=== PATIENT | female | born 1940 | race Caucasian/White ===

== ENCOUNTER → 2016-12-21 09:00 | Outpatient (CLI) | payer MEDICARE, OTHER ==
[2016-07-11 09:38] VITALS: BMI 23.3
[~2016-12-21 09:00] MED LIST: ATARAX 25 MG TA25 MG PO; AUGMENTIN 875-11 TAB PO; CALCIUM 600 +1 EAC3 PO; CALCIUM 600+D T1 TA1 PO; CLARITIN 10 MG10 MG PO; COUMADIN2.5 MG PO; ELIQUIS5 MG PO; GAVISCON E1 TAB.CHEW PO; HYDROCODON-ACE1 EAC7 PO; LEVAQUIN500 MG PO; LEVOTHROID100 MCG PO; MAG-OX 400 MG400 MG PO; MUCINEX600 MG PO; MUCUS RELIEF400 MG PO; PREDNISONE2.5 MG PO; PROVENTIL HFA6.7 GM INH; SYNTHROID125 MCG PO; TYLENOL 8 HOUR650 MG PO; VITAMIN D31000 UNIT PO; VITAMIN D3400 UNI1 PO; ZOLOFT100 MG PO; ZOLOFT50 MG; [UNRECOGNIZED DRUG - OTHER] PO
== END | disposition home or self-care (01) ==
LOC: D.CT 12-19 12:00 → D.LAB 12-19 12:30 → D.CT 09:00
DX: D49.0 Neoplasm of unspecified behavior of digestive system (principal); D68.9 Coagulation defect, unspecified; I26.99 Other pulmonary embolism without acute cor pulmonale

== ENCOUNTER → 2017-01-08 09:55 | Outpatient (CLI) | payer MEDICARE, OTHER ==
[2016-07-11 09:38] VITALS: BMI 23.3
== END | disposition home or self-care (01) ==
LOC: D.LAB 09:55
DX: C18.9 Malignant neoplasm of colon, unspecified (principal)

== ENCOUNTER → 2017-03-08 09:41 | Outpatient (CLI) | payer MEDICARE, OTHER ==
[2016-07-11 09:38] VITALS: BMI 23.3
== END | disposition home or self-care (01) ==
LOC: D.US 09:30
DX: M79.604 Pain in right leg (principal); R60.0 Localized edema

== ENCOUNTER → 2017-12-20 19:57 | Outpatient (CLI) | payer MEDICARE, OTHER ==
[2016-07-11 09:38] VITALS: BMI 23.3
== END | disposition home or self-care (01) ==
LOC: D.MAMMO 12-11 15:30
DX: Z12.31 Encounter for screening mammogram for malignant neoplasm of breast (principal)

== ENCOUNTER 2019-01-15 06:45 | Day surgery (SDC) | payer MEDICARE, OTHER ==
[2019-01-14 14:26] LABS: HEMATOCRIT 33.1 % (36.0-48.0); HEMOGLOBIN 10.8 g/dL (12-16); MCHC 32.6 g/dL (31.0-37.0); MCV 88.7 fL (80.0-100.0); MEAN PLATELET VOLUME 9.3 fL (7.4-10.4); RBC 3.73 10x6/uL (4.00-5.40); RDW 15.1 % (11.5-14.5); WBC 2.7 10x3/uL (4.8-10.8)
[2019-01-14 15:34] LABS: PLATELET COUNT 166 10x3/uL (130-400)
[2019-01-14 16:01] LABS: APTT 27.7 SECONDS (22.8-39.4); INR 1.39 (0.85-1.17); PROTIME 16.5 SECONDS (11.6-15.0)
[2019-01-14 18:33] LABS: EOSINOPHILS 3 % (0-7); LYMPHOCYTES 48 % (15-50); MONOCYTES 5 % (2-11); NEUTROPHILS 43 % (40-80); PLATELET ESTIMATE NORMAL
[~2019-01-15] VITALS: Ht 167.6 cm; Wt 69.4 kg
--- NOTE | ~2019-01-15 | OP ---
PATIENT NAME: LILIANE BLAKE MEDICAL RECORD: [id number] :40 LOCATION:[facility] ADMISSION DATE: SURGEON: JORGE GOMEZ MD DATE OF OPERATION: 01/15/2019 PREOPERATIVE DIAGNOSES: Rotator cuff tear of the left shoulder with impingement syndrome. POSTOPERATIVE DIAGNOSES: Rotator cuff tear of the left shoulder with impingement syndrome. PROCEDURE: 1. Arthroscopic rotator cuff repair of the left shoulder. 2. Arthroscopic subacromial decompression with acromioplasty and bursectomy. 3. Arthroscopic distal clavicle excision done through separate incision. SURGEON: Jorge Gomez MD INTRAOPERATIVE COMPLICATIONS: None. SUMMARY OF PATHOLOGIC FINDINGS: Consistent with the patient's preoperative MRI and radiographs. The patient had a full thickness rotator cuff tear with downward sloping acromion with excoriation of the coracoacromial ligament as well as acromioclavicular arthritis. OPERATIVE SUMMARY IN DETAIL: After obtaining the appropriate preoperative orthopedic surgery consent as well as anesthetic consultation, evaluation, and clearance, the patient was brought to the operating room and placed on the operating table in supine position. After general laryngeal mask airway was administered, the patient was placed in right lateral decubitus position. All pressure points were well padded to include down leg peroneal pad as well as axillary roll. The patient was held firmly to the operating table using vacuum pack suction system. Left upper extremity and shoulder were then prepped and draped in routine sterile fashion. The arm was held in the Arthrex traction boom at 30 degrees of forward flexion, 30 degrees of abduction, 10 pounds of traction laterally. Arthroscopy was established in the glenohumeral joint from the posterior portal, anterior portal was established in the anterior safe interval. Diagnostic arthroscopy showed the patient to have full thickness rotator cuff tearing. Transrotator cuff tear portal was created through which the undersurface of the rotator cuff and the articular side was debrided back to viable rotator cuff elements and decortication was carried out and the articular aspect of the supraspinatus tendinous footprint. Attention then turned to the subacromial space. While on the subacromial space, the Olar tissue ablation system was utilized to release the coracoacromial ligament and denude the undersurface of the acromion of all soft tissue elements. A 5-0 barrel bur was then used for acromioplasty at the level of acromioclavicular joint. Having completed this, attention was turned to the distal clavicle. Through a separate arthroscopic portal, distal clavicle was excised for 1 cm. Having completed this, the residual bursa was taken down anteriorly, posteriorly, laterally as well as superiorly. Attention was then turned to the rotator cuff. Single inverted #2 FiberTape was placed and anchored laterally with a 5.5 SwiveLock from Arthrex resulted in excellent rotator cuff reapproximation back to supraspinatus tendinous footprint. Having completed this, arthroscopy portals were closed in OPERATIVE REPORT [id number] LILIANE BLAKE routine interrupted fashion using 4-0 Prolene. Sterile dressings were applied. The patient was awakened, taken to recovery room in stable condition. All final needle and sponge counts were correct. TRANSINT:[id number] Voice Confirmation ID: [id number] DOCUMENT ID: [id number] PATRICIA CURRAN, JORGE HILARIO CC: [id number] DICTATION DATE: 01/19/19913 DYE OPERATOR: 01/19/19 [address] [facility] [place] 01/15/19 [address] [place] [address]
[~2019-01-15 06:45] MED LIST changes: +AZO PO; +COUMADIN3 MG PO; +ENOXAPARIN INJ; +SYNTHROID100 MCG PO; -SYNTHROID125 MCG PO
[2019-01-15 08:36] VITALS: Ht 167.6 cm; Wt 69.4 kg
[2019-01-15] MEDS ORDERED: HYDROCODON-ACE1 EA10 PO (10:38)
--- NOTE | 2019-01-15 17:23 | NUR ---
1345 IV DC'D. CATHETER INTACT. PRESSURE HELD UNTIL BLEEDING STOPPED. NO DRESSING APPLIED DUE TO ADHESIVE ALLERGY.
== END 2019-01-15 14:42 | disposition home or self-care (01) ==
LOC: D.OPS 06:45 → D.PAN 07:30 → D.OPS 08:45 → D.PAN 08:45 → D.OPS 08:50 → D.PAN 08:50 → D.OPS 14:42
PROVIDERS: Anesthesiology; ATTEND Orthopaedic Surgery
DX: M75.122 Complete rotator cuff tear or rupture of left shoulder, not specified as traumatic (principal); M75.42 Impingement syndrome of left shoulder; Z01.812 Encounter for preprocedural laboratory examination

== ENCOUNTER 2019-01-27 11:13 | Emergency (ER) | payer MEDICARE, OTHER ==
[~2019-01-27] VITALS: Ht 167.6 cm; Wt 72.7 kg
[~2019-01-27 11:13] MED LIST changes: +HYDROCODON-ACE1 EA10 PO
[2019-01-27 11:17] VITALS: Ht 167.6 cm; Wt 72.7 kg
[2019-01-27 11:53] LABS: BASOPHILS 0.6 % (0-2); EOSINOPHILS 5.4 % (0-7); HEMATOCRIT 29.3 % (36.0-48.0); HEMOGLOBIN 9.5 g/dL (12-16); LYMPHOCYTES 24.2 % (15-50); MCH 28.6 pg (26.0-34.0); MCHC 32.4 g/dL (31.0-37.0); MCV 88.3 fL (80.0-100.0); MEAN PLATELET VOLUME 8.6 fL (7.4-10.4); NEUTROPHILS 54.8 % (40-80); RBC 3.32 10x6/uL (4.00-5.40); RDW 15.3 % (11.5-14.5); WBC 3.1 10x3/uL (4.8-10.8)
[2019-01-27 11:54] LABS: PLATELET COUNT 229 10x3/uL (130-400)
[2019-01-27 12:10] LABS: ALKALINE PHOSPHATASE 101 U/L (46-116); ALT (SGPT) 34 U/L (10-68); BILIRUBIN - TOTAL 0.22 mg/dL (0.2-1.3); CALC OSMOLALITY 272 mosm/kg (275-300); CALCIUM 8.6 mg/dL (8.5-10.1); CARBON DIOXIDE 26.6 mmol/L (21.0-32.0); CHLORIDE - SERUM 101 mmol/L (98-107); CREATININE - SERUM 0.8 mg/dL (0.6-1.3); GLUCOSE 100 mg/dL (74-106); POTASSIUM - SERUM 4.4 mmol/L (3.5-5.1); PROTEIN - SERUM 7.4 g/dL (6.4-8.2); SODIUM 135 mmol/L (136-145); UREA NITROGEN 20 mg/dL (7-18); eGFR NON AFRICAN AMERICAN 73 mL/min (90-120)
[2019-01-27 12:21] LABS: CKMB 1.7 U/L (0.0-3.6); CREATINE KINASE 108 UL (21-215); MAGNESIUM - SERUM 1.9 mg/dL (1.8-2.4); TROPONIN-I < 0.017 ng/mL (0.000-0.060)
[2019-01-27 12:30] LABS: APTT 28.1 SECONDS (22.8-39.4); INR 1.19 (0.85-1.17); PROTIME 14.6 SECONDS (11.6-15.0)
[2019-01-27 16:26] VITALS: BP 119/53
== END 2019-01-27 16:24 | disposition home or self-care (01) ==
LOC: D.ER 11:13
PROVIDERS: Family Medicine
DX: R07.9 Chest pain, unspecified (principal)

== ENCOUNTER 2019-04-04 14:24 | Inpatient (IN) | payer MEDICARE, OTHER ==
[~2019-04-04] VITALS: Ht 167.6 cm; Wt 76.2 kg
[2019-04-04 15:11] LABS: BASOPHILS 0.2 % (0-2); EOSINOPHILS 0.6 % (0-7); HEMATOCRIT 31.6 % (36.0-48.0); HEMOGLOBIN 10.4 g/dL (12-16); IMMATURE GRANULOCYTES 0.2 % (0-5); LYMPHOCYTES 15.4 % (15-50); MCH 28.2 pg (26.0-34.0); MCHC 32.9 g/dL (31.0-37.0); MCV 85.6 fL (80.0-100.0); MEAN PLATELET VOLUME 8.9 fL (7.4-10.4); MONOCYTES 6.7 % (2-11); NEUTROPHILS 76.9 % (40-80); RBC 3.69 10x6/uL (4.00-5.40); RDW 15.4 % (11.5-14.5)
[2019-04-04 15:12] LABS: PLATELET COUNT 172 10x3/uL (130-400)
[2019-04-04 15:24] LABS: APTT 33.9 SECONDS (22.8-39.4); INR 2.44 (0.85-1.17); PROTIME 25.8 SECONDS (11.6-15.0)
[2019-04-04 15:27] LABS: ALBUMIN 3.5 g/dL (3.4-5.0); ALKALINE PHOSPHATASE 83 U/L (46-116); ALT (SGPT) 23 U/L (10-68); BILIRUBIN - TOTAL 0.24 mg/dL (0.2-1.3); CALC OSMOLALITY 268 mosm/kg (275-300); CALCIUM 8.8 mg/dL (8.5-10.1); CARBON DIOXIDE 23.7 mmol/L (21.0-32.0); CHLORIDE - SERUM 100 mmol/L (98-107); CREATININE - SERUM 0.8 mg/dL (0.6-1.3); GLUCOSE 101 mg/dL (74-106); POTASSIUM - SERUM 4.5 mmol/L (3.5-5.1); PROTEIN - SERUM 7.4 g/dL (6.4-8.2); SODIUM 134 mmol/L (136-145); UREA NITROGEN 15 mg/dL (7-18); eGFR NON AFRICAN AMERICAN 73 mL/min (90-120)
[2019-04-04 15:39] LABS: CKMB 2.1 U/L (0.0-3.6); CREATINE KINASE 121 UL (21-215); PRO BNP 223 pg/mL (0-450); TROPONIN-I < 0.017 ng/mL (0.000-0.060)
[2019-04-04 16:00] VITALS: BP 142/82
[2019-04-04 18:15] VITALS: BP 132/78
[2019-04-04] MEDS ORDERED: CLARITIN 10 MG10 MG PO (18:26)
[2019-04-04] MEDS ORDERED: MUCINEX600 MG PO (18:27)
[2019-04-04 20:00] VITALS: BP 125/49
[2019-04-04 23:09] VITALS: BMI 27.1
[2019-04-05] VITALS: BP 106/49
[2019-04-05 04:00] VITALS: BP 110/56
[2019-04-05 09:19] VITALS: BP 108/50
[2019-04-05 11:36] LABS: % SATURATION 17 % (15-55); IRON 53 ug/dl (35-150); TOTAL IRON BIND CAPACITY 298 ug/dl (260-445); UNSAT IRON BIND CAPACITY 245 ug/dl (150-375)
[2019-04-05 11:48] LABS: CKMB 2.3 U/L (0.0-3.6); CREATINE KINASE 123 UL (21-215); TROPONIN-I < 0.017 ng/mL (0.000-0.060)
[2019-04-05 12:55] VITALS: BP 108/45
[2019-04-05 16:58] LABS: CKMB 2.2 U/L (0.0-3.6); CREATINE KINASE 125 UL (21-215)
[2019-04-05 16:59] LABS: TROPONIN-I < 0.017 ng/mL (0.000-0.060)
[2019-04-05 20:00] VITALS: BP 118/59
[2019-04-05 22:49] LABS: CKMB 1.9 U/L (0.0-3.6); CREATINE KINASE 114 UL (21-215)
[2019-04-05 22:56] LABS: TROPONIN-I < 0.017 ng/mL (0.000-0.060)
[2019-04-06 04:17] LABS: BASOPHILS 0 % (0-2); EOSINOPHILS 0 % (0-7); HEMATOCRIT 32.2 % (36.0-48.0); HEMOGLOBIN 10.6 g/dL (12-16); IMMATURE GRANULOCYTES 0.2 % (0-5); LYMPHOCYTES 12.1 % (15-50); MCHC 32.9 g/dL (31.0-37.0); MCV 85.2 fL (80.0-100.0); MEAN PLATELET VOLUME 9.4 fL (7.4-10.4); MONOCYTES 5.5 % (2-11); NEUTROPHILS 82.2 % (40-80); RBC 3.78 10x6/uL (4.00-5.40); RDW 15.7 % (11.5-14.5)
[2019-04-06 04:27] LABS: PLATELET COUNT 208 10x3/uL (130-400)
[2019-04-06 04:48] LABS: INR 3.56 (0.85-1.17); PROTIME 34.8 SECONDS (11.6-15.0)
[2019-04-06 04:55] LABS: ALBUMIN 3.3 g/dL (3.4-5.0); ANION GAP 14.5 mmol/L (8-16); BILIRUBIN - TOTAL 0.25 mg/dL (0.2-1.3); CALCIUM 9.1 mg/dL (8.5-10.1); CARBON DIOXIDE 24.4 mmol/L (21.0-32.0); CREATININE - SERUM 0.8 mg/dL (0.6-1.3); MAGNESIUM - SERUM 1.9 mg/dL (1.8-2.4); POTASSIUM - SERUM 3.9 mmol/L (3.5-5.1); PROTEIN - SERUM 7.2 g/dL (6.4-8.2)
[2019-04-06 05:07] VITALS: BP 115/60
[2019-04-06 09:01] VITALS: BP 113/54
[2019-04-06 13:18] VITALS: BP 116/58
[2019-04-06 16:45] VITALS: BP 113/54
[2019-04-06 21:12] VITALS: BP 114/49
[2019-04-07 01:12] VITALS: BP 124/54
[2019-04-07 04:45] VITALS: BP 120/56
[2019-04-07 05:53] LABS: BASOPHILS 0 % (0-2); EOSINOPHILS 0 % (0-7); HEMATOCRIT 31.8 % (36.0-48.0); HEMOGLOBIN 10.4 g/dL (12-16); IMMATURE GRANULOCYTES 0.4 % (0-5); LYMPHOCYTES 13.3 % (15-50); MCH 28.1 pg (26.0-34.0); MCHC 32.7 g/dL (31.0-37.0); MCV 85.9 fL (80.0-100.0); MEAN PLATELET VOLUME 9.8 fL (7.4-10.4); MONOCYTES 5.3 % (2-11); PLATELET COUNT 219 10x3/uL (130-400); RDW 16.1 % (11.5-14.5); WBC 6.9 10x3/uL (4.8-10.8)
[2019-04-07 06:10] LABS: INR 2.87 (0.85-1.17); PROTIME 29.4 SECONDS (11.6-15.0)
[2019-04-07 06:13] LABS: ALBUMIN 3.2 g/dL (3.4-5.0); ANION GAP 11.7 mmol/L (8-16); BILIRUBIN - TOTAL 0.23 mg/dL (0.2-1.3); CALCIUM 8.8 mg/dL (8.5-10.1); CARBON DIOXIDE 26.6 mmol/L (21.0-32.0); CREATININE - SERUM 0.8 mg/dL (0.6-1.3); MAGNESIUM - SERUM 1.9 mg/dL (1.8-2.4); POTASSIUM - SERUM 4.3 mmol/L (3.5-5.1); PROTEIN - SERUM 6.4 g/dL (6.4-8.2)
[2019-04-07 08:13] LABS: FOLATE (FOLIC ACID) - SERUM >20.0 ng/mL (>3.0)
[2019-04-07 09:29] VITALS: BP 126/61
[2019-04-07 13:42] VITALS: BP 127/61
[2019-04-07 16:45] VITALS: BP 123/60
[2019-04-07 20:48] VITALS: BP 115/58
[2019-04-08] VITALS (7 sets, daily range): BP systolic 110–130; BP diastolic 57–66
[2019-04-08 04:19] LABS: BASOPHILS 0 % (0-2); EOSINOPHILS 0 % (0-7); HEMATOCRIT 33.8 % (36.0-48.0); HEMOGLOBIN 11.4 g/dL (12-16); IMMATURE GRANULOCYTES 0.4 % (0-5); LYMPHOCYTES 14.6 % (15-50); MCH 28.9 pg (26.0-34.0); MCHC 33.7 g/dL (31.0-37.0); MCV 85.8 fL (80.0-100.0); MEAN PLATELET VOLUME 9.4 fL (7.4-10.4); PLATELET COUNT 209 10x3/uL (130-400); RBC 3.94 10x6/uL (4.00-5.40); RDW 15.7 % (11.5-14.5); WBC 5.6 10x3/uL (4.8-10.8)
[2019-04-08 04:26] LABS: INR 2.59 (0.85-1.17)
[2019-04-08 04:34] LABS: ALBUMIN 3.2 g/dL (3.4-5.0); ANION GAP 9.9 mmol/L (8-16); BILIRUBIN - TOTAL 0.3 mg/dL (0.2-1.3); CALCIUM 8.9 mg/dL (8.5-10.1); CARBON DIOXIDE 27.3 mmol/L (21.0-32.0); CREATININE - SERUM 0.9 mg/dL (0.6-1.3); MAGNESIUM - SERUM 1.8 mg/dL (1.8-2.4); POTASSIUM - SERUM 4.2 mmol/L (3.5-5.1); PROTEIN - SERUM 6.9 g/dL (6.4-8.2)
[2019-04-08 08:14] LABS: IMMUNOGLOBULIN A 270 mg/dL (64-422); IMMUNOGLOBULIN G 1181 mg/dL (700-1600)
[2019-04-09 01:25] VITALS: BP 107/52
[2019-04-09 05:29] VITALS: BP 113/59
[2019-04-09 06:42] LABS: BASOPHILS 0 % (0-2); EOSINOPHILS 0 % (0-7); HEMOGLOBIN 10.6 g/dL (12-16); IMMATURE GRANULOCYTES 0.5 % (0-5); LYMPHOCYTES 16.7 % (15-50); MCH 27.9 pg (26.0-34.0); MCHC 33.1 g/dL (31.0-37.0); MCV 84.2 fL (80.0-100.0); MEAN PLATELET VOLUME 10.2 fL (7.4-10.4); MONOCYTES 5.3 % (2-11); NEUTROPHILS 77.5 % (40-80); PLATELET COUNT 212 10x3/uL (130-400); RDW 15.6 % (11.5-14.5); WBC 5.6 10x3/uL (4.8-10.8)
[2019-04-09 06:51] LABS: INR 2.84 (0.85-1.17); PROTIME 29.1 SECONDS (11.6-15.0)
[2019-04-09 06:56] LABS: ALBUMIN 2.9 g/dL (3.4-5.0); BILIRUBIN - TOTAL 0.23 mg/dL (0.2-1.3); CALCIUM 8.7 mg/dL (8.5-10.1); CREATININE - SERUM 0.9 mg/dL (0.6-1.3); MAGNESIUM - SERUM 1.6 mg/dL (1.8-2.4); PROTEIN - SERUM 6.3 g/dL (6.4-8.2)
[2019-04-09 09:11] VITALS: BP 125/62
--- NOTE | 2019-04-09 09:15 | MORECARE ---
CASE MANAGEMENT DISCHARGE SUMMARY PATIENT: LILIANE BLAKE UNIT: [id number] ADM DATE: 04/05/19 AGE: 79 : 40 SEX: F ROOM/BED: D.2203 AUTHOR: ISAIAS,DOC PHYSICIAN: REFERRING PHYSICIAN: CORBIN LEDESMA MD DATE OF SERVICE: 04/09/19 Discharge Plan Patient Name: LILIANE BLAKE Facility: [facility]:[place] : 1940 Planned Disposition: Home Anticipated Discharge Date: Discharge Date: Expected LOS: Initial Reviewer: [email or web address] Initial Review Date: 04/09/2019 Generated: 04/09/19 10:15 am Comments DCP- Discharge Planning Updated by [id number]: Samia Schmidt on 04/09/19 8:[address] Patient Name: LILIANE BLAKE Admission Status: ER Accout number: [id number] Admission Date: 04-05-2019 : 1940 Admission Diagnosis:ACUTE RESPIRATORY FAILURE WITH HYPOXIA Attending: CORBIN LEDESMA Current LOS: 4 Anticipated DC Date: Planned Disposition: Home Primary Insurance: MEDICARE A & B Discharge Planning Comments: CM MET WITH PATIENT ABOUT DC PLANNING/NEEDS. HAS HOME 02 BUT MAY NEED NEBULIZER. DOESN'T REMEMBER NAME OF O2 COMPANY BUT IS GOING TO FIND OUT, [employer] SIGNED FOR NEB IF NEEDED. STATES SHE IS INDEPENDANT AT HOME AND HER SISTER LIVES WITH HER. SHE STATES SHE TAKES CARE OF HER SISTER. DENIES NEEDS OTHER THAN A NEBULIZER. CM TO FOLLOW AND ASSIST NEEDED. Wood Heel Cementer: Samia Schmidt DCPIA - Discharge Planning Initial Assessment Updated by [id number]: Samia Schmidt on 04/09/19 9:11 am * Is the patient Alert and Oriented? Yes * PCP PAUL * [facility] * Preadmission Environment Home with Family * ADLs Independent * Equipment Oxygen * List name and contact numbers for known caregivers / representatives who currently or will assist patient after discharge: BESSY CARRINGTON, SISTER, . * Verbal permission to speak to the caregivers and representatives has been obtained from the patient. Yes * Community resources currently utilized None * Please name any agencies selected above. IS CALLING ME BACK WITH NAME OF [employer] COMPANY * Can the patient safely return to the preadmission environment? Yes * Has this patient been hospitalized within the prior 30 days at any hospital? No Coverage Notice Reviewer: [id number] Janelle Schmidt Notice Issued Date-Time: 04/09/2019 9:14 Notice Type: Patient Choice Letter Notice Delivered To: Patient Relationship to Patient: Property Insurance Agent Name: Delivery Method: HAND - Hand Delivered Jennifer Days: Prior Verbal Notification: Recipient Understood Notice: Yes Recipient Signature: Yes Med Rec Note Co-signed by Attending: Coverage Notice Comment: [employer] FOR NEBULIZER IF NEEDED. Patient Name: LILIANE BLAKE Page [phone] at 0915 All edits/amendments must be made on the electronic document DICTATION DATE: 04/09/19913 POINTER MACHINE OPERATOR: JOANNA 04/09/19913 RPT#: [id number] DC DATE: STATUS: ADM IN [facility] [address] [place] [address] END OF REPORT
[2019-04-09 12:56] VITALS: BP 100/43
[2019-04-09 14:03] VITALS: Ht 167.6 cm; Wt 76.2 kg
[2019-04-09 16:45] VITALS: BP 127/61
[2019-04-09 21:22] VITALS: BP 124/61
[2019-04-10 01:15] VITALS: BP 187/73
[2019-04-10 04:29] LABS: BASOPHILS 0 % (0-2); EOSINOPHILS 0 % (0-7); HEMATOCRIT 32.3 % (36.0-48.0); HEMOGLOBIN 10.8 g/dL (12-16); IMMATURE GRANULOCYTES 0.8 % (0-5); MCH 27.9 pg (26.0-34.0); MCHC 33.4 g/dL (31.0-37.0); MCV 83.5 fL (80.0-100.0); MEAN PLATELET VOLUME 9.7 fL (7.4-10.4); MONOCYTES 6.3 % (2-11); NEUTROPHILS 76.9 % (40-80); PLATELET COUNT 212 10x3/uL (130-400); RBC 3.87 10x6/uL (4.00-5.40); RDW 15.6 % (11.5-14.5)
[2019-04-10 04:35] LABS: INR 3.16 (0.85-1.17); PROTIME 31.7 SECONDS (11.6-15.0)
[2019-04-10 04:47] LABS: ALBUMIN 2.8 g/dL (3.4-5.0); BILIRUBIN - TOTAL 0.25 mg/dL (0.2-1.3); CALCIUM 8.4 mg/dL (8.5-10.1); CARBON DIOXIDE 27.7 mmol/L (21.0-32.0); CREATININE - SERUM 0.9 mg/dL (0.6-1.3); MAGNESIUM - SERUM 1.7 mg/dL (1.8-2.4); POTASSIUM - SERUM 4.7 mmol/L (3.5-5.1); PROTEIN - SERUM 6.1 g/dL (6.4-8.2)
[2019-04-10 06:04] VITALS: BP 113/56
[2019-04-10 08:40] VITALS: BP 116/59
--- NOTE | 2019-04-10 09:17 | MORECARE ---
CASE MANAGEMENT DISCHARGE SUMMARY PATIENT: LILIANE BLAKE UNIT: [id number] ADM DATE: 04/05/19 AGE: 79 : 40 SEX: F ROOM/BED: D.2203 AUTHOR: MELISSA ESPARZA PHYSICIAN: REFERRING PHYSICIAN: CORBIN LEDESMA MD DATE OF SERVICE: 04/10/19 Discharge Plan Patient Name: LILIANE BLAKE Facility: [facility]:[place] : 1940 Planned Disposition: Home Anticipated Discharge Date: Discharge Date: Expected LOS: Initial Reviewer: [email or web address] Initial Review Date: 04/09/2019 Generated: 04/10/19 10:17 am Comments DCP- Discharge Planning Updated by [id number]: Samia Schmidt on 04/10/19 8:[address] Patient Name: LILIANE BLAKE Admission Status: ER Accout number: [id number] Admission Date: 04-05-2019 : 1940 Admission Diagnosis:ACUTE RESPIRATORY FAILURE WITH HYPOXIA Attending: CORBIN LEDESMA Current LOS: 5 Anticipated DC Date: Planned Disposition: Home Primary Insurance: MEDICARE A & B Discharge Planning Comments: [facility], WAITING FOR CALL BACK. Stripper And Printer: Samia Schmidt DCP- Discharge Planning Updated by [email or web address]: Samia Schmidt on 04/09/19 8:[address] Patient Name: LILIANE BLAKE Admission Status: ER Accout number: [id number] Admission Date: 04-05-2019 : 1940 Admission Diagnosis:ACUTE RESPIRATORY FAILURE WITH HYPOXIA Attending: CORBIN LEDESMA Current LOS: 4 Anticipated DC Date: Planned Disposition: Home Primary Insurance: MEDICARE A & B Discharge Planning Comments: CM MET WITH PATIENT ABOUT DC PLANNING/NEEDS. HAS HOME 02 BUT MAY NEED NEBULIZER. DOESN'T REMEMBER NAME OF O2 COMPANY BUT IS GOING TO FIND OUT, [employer] SIGNED FOR NEB IF NEEDED. STATES SHE IS INDEPENDANT AT HOME AND HER SISTER LIVES WITH HER. SHE STATES SHE TAKES CARE OF HER SISTER. DENIES NEEDS OTHER THAN A NEBULIZER. CM TO FOLLOW AND ASSIST NEEDED. Stripper And Printer: Samia Schmidt DCPIA - Discharge Planning Initial Assessment Updated by [email or web address]: Samia Schmidt on 04/09/19 9:11 am * Is the patient Alert and Oriented? Yes * PCP PAUL * [facility]acy [facility] * Preadmission Environment Home with Family * ADLs Independent * Equipment Oxygen * List name and contact numbers for known caregivers / representatives who currently or will assist patient after discharge: BESSY CARRINGTON, SISTER, . * Verbal permission to speak to the caregivers and representatives has been obtained from the patient. Yes * Community resources currently utilized None * Please name any agencies selected above. IS CALLING ME BACK WITH NAME OF [employer] * Can the patient safely return to the preadmission environment? Yes * Has this patient been hospitalized within the prior 30 days at any hospital? No External Providers External Provider: [facility] Next Contact Date: Service Request Date: Service Type: Resolution: Reviewer: Comments: Coverage Notice Reviewer: [id number] Janelle Schmidt Notice Issued Date-Time: 04/09/2019 9:14 Notice Type: Patient Choice Letter Notice Delivered To: Patient Relationship to Patient: Consulting Technical Director Name: Delivery Method: HAND - Hand Delivered Jennifer Days: Prior Verbal Notification: Recipient Understood Notice: Yes Recipient Signature: Yes Med Rec Note Co-signed by Attending: Coverage Notice Comment: [employer] FOR NEBULIZER IF NEEDED. Last DP export: 04/09/19 8:15 a Patient Name: LILIANE BLAKE Page [phone] at 0917 All edits/amendments must be made on the electronic document DICTATION DATE: 04/10/19915 FISHING TOOL TECHNICIAN OIL WELL: JOANNA 04/10/19915 RPT#: [id number] DC DATE: STATUS: ADM IN [facility] [address] [place] [address] END OF REPORT
[2019-04-10] MEDS ORDERED: VIBRAMYCIN 100100 MG PO (10:24)
[2019-04-10] MEDS ORDERED: MUCINEX DM ER1 EAC1 PO (10:25)
[2019-04-10] MEDS ORDERED: FLORAJEN3 CAPS460 MG PO (10:25)
[2019-04-10] MEDS ORDERED: PULMICORT0.5 MG/21 UPD (10:25)
[2019-04-10] MEDS ORDERED: SINGULAIR10 MG PO (10:25)
[2019-04-10] MEDS ORDERED: FLUTICASONE PRO16 GM NASAL (10:25)
[2019-04-10] MEDS ORDERED: PREDNISONE10 MG PO (10:26)
[2019-04-10] MEDS ORDERED: ALBUTEROL2.5 MG/3 M INH (10:26)
[2019-04-10] MEDS ORDERED: OMNICEF300 MG PO (10:26)
[2019-04-10] MEDS ORDERED: BROVANA15 MCG/2 M INH (10:27)
[2019-04-10] MEDS ORDERED: Tessalon Perle PO (10:27)
[2019-04-10 12:03] VITALS: BP 108/62
--- NOTE | 2019-04-10 16:33 | MORECARE ---
CASE MANAGEMENT DISCHARGE SUMMARY PATIENT: LILIANE BLAKE UNIT: [id number] ADM DATE: 04/05/19 AGE: 79 : 40 SEX: F ROOM/BED: D.2203 AUTHOR: ISAIASDOC PHYSICIAN: REFERRING PHYSICIAN: CORBIN LEDESMA MD DATE OF SERVICE: 04/10/19 Discharge Plan Patient Name: LILIANE BLAKE Facility: [facility]:[place] : 1940 Planned Disposition: Home Anticipated Discharge Date: Discharge Date: 04/10/2019 Expected LOS: Initial Reviewer: [email or web address] Initial Review Date: 04/09/2019 Generated: 04/10/19 5:33 pm Comments DCP- Discharge Planning Updated by [email or web address]: Samia Schmidt on 04/10/19 8:[address] Patient Name: LILIANE BLAKE Admission Status: ER Accout number: [id number] Admission Date: 04-05-2019 : 1940 Admission Diagnosis:ACUTE RESPIRATORY FAILURE WITH HYPOXIA Attending: CORBIN LEDESMA Current LOS: 5 Anticipated DC Date: Planned Disposition: Home Primary Insurance: MEDICARE A & B Discharge Planning Comments: CM FAXED DOCUMENTS TO [facility] FOR [facility]UL[facility], WAITING FOR CALL BACK. Custodial Laborer: Samia Schmidt DCP- Discharge Planning Updated by [id number]: Samia Schmidt on 04/09/19 8:[address] Patient Name: LILIANE BLAKE Admission Status: ER Accout number: [id number] Admission Date: 04-05-2019 : 1940 Admission Diagnosis:ACUTE RESPIRATORY FAILURE WITH HYPOXIA Attending: CORBIN LEDESMA Current LOS: 4 Anticipated DC Date: Planned Disposition: Home Primary Insurance: MEDICARE A & B Discharge Planning Comments: CM MET WITH PATIENT ABOUT DC PLANNING/NEEDS. HAS HOME 02 BUT MAY NEED NEBULIZER. DOESN'T REMEMBER NAME OF O2 COMPANY BUT IS GOING TO FIND OUT, [employer] SIGNED FOR NEB IF NEEDED. STATES SHE IS INDEPENDANT AT HOME AND HER SISTER LIVES WITH HER. SHE STATES SHE TAKES CARE OF HER SISTER. DENIES NEEDS OTHER THAN A NEBULIZER. CM TO FOLLOW AND ASSIST NEEDED. Custodial Laborer: Samia Schmidt DCPIA - Discharge Planning Initial Assessment Updated by [id number]: Samia Schmidt on 04/09/19 9:11 am * Is the patient Alert and Oriented? Yes * PCP PAUL * [facility] * Preadmission Environment Home with Family * ADLs Independent * Equipment Oxygen * List name and contact numbers for known caregivers / representatives who currently or will assist patient after discharge: BESSY CARRINGTON, , . * Verbal permission to speak to the caregivers and representatives has been obtained from the patient. Yes * Community resources currently utilized None * Please name any agencies selected above. IS CALLING ME BACK WITH NAME OF [employer] * Can the patient safely return to the preadmission environment? Yes * Has this patient been hospitalized within the prior 30 days at any hospital? No Coverage Notice Reviewer: [email or web address] Janelle Schmidt Notice Issued Date-Time: 04/09/2019 9:14 Notice Type: Patient Choice Letter Notice Delivered To: Patient Relationship to Patient: Children'S Service Supervisor Name: Delivery Method: HAND - Hand Delivered Jennifer Days: Prior Verbal Notification: Recipient Understood Notice: Yes Recipient Signature: Yes Med Rec Note Co-signed by Attending: Coverage Notice Comment: [employer] FOR NEBULIZER IF NEEDED. Reviewer: [id number] Janelle Schmidt Notice Issued Date-Time: 04/10/2019 11:42 Notice Type: IM Discharge Notice Notice Delivered To: Patient Relationship to Patient: Children'S Service Supervisor Name: Delivery Method: HAND - Hand Delivered Jennifer Days: Prior Verbal Notification: Recipient Understood Notice: Yes Recipient Signature: Yes Med Rec Note Co-signed by Attending: Coverage Notice Comment: Last DP export: 04/10/19 8:17 a Patient Name: LILIANE BLAKE Page [phone] at 1633 All edits/amendments must be made on the electronic document DICTATION DATE: 04/10/19 1633 MONEY COUNTER: JOANNA 04/10/19 1633 RPT#: [id number] DC DATE:04/10/19 STATUS: DIS IN [facility] [address] [place] [address] END OF REPORT
[2019-04-11 16:07] LABS: IMMUNOGLOBULIN E 168 IU/mL (6-495)
== END 2019-04-10 15:25 | disposition home or self-care (01) | DRG 189 ==
LOC: D.ER 14:24 → D.MS 16:27 → OBSVTIME 16:27 → D.MS 16:27
PROVIDERS: Emergency Medicine; Family Medicine; Internal Medicine Pulmonary Disease; ADMIT Internal Medicine Nephrology; ATTEND Internal Medicine Nephrology
DX: J96.01 Acute respiratory failure with hypoxia (principal); J98.11 Atelectasis; J44.0 Chronic obstructive pulmonary disease with (acute) lower respiratory infection; J44.1 Chronic obstructive pulmonary disease with (acute) exacerbation; I50.22 Chronic systolic (congestive) heart failure; J20.9 Acute bronchitis, unspecified; M32.9 Systemic lupus erythematosus, unspecified; E78.5 Hyperlipidemia, unspecified; F32.9 Major depressive disorder, single episode, unspecified

== ENCOUNTER → 2019-06-23 14:47 | Outpatient (CLI) | payer MEDICARE, OTHER ==
[2019-04-09 14:03] VITALS: BMI 27.1
[~2019-06-23 14:47] MED LIST changes: +ALBUTEROL2.5 MG/3 M INH; +BROVANA15 MCG/2 M INH; +FLORAJEN3 CAPS460 MG PO; +FLUTICASONE PRO16 GM NASAL; +MUCINEX DM ER1 EAC1 PO; +OMNICEF300 MG PO; +PREDNISONE10 MG PO; +PULMICORT0.5 MG/21 UPD; +SINGULAIR10 MG PO; +Tessalon Perle PO; +VIBRAMYCIN 100100 MG PO
== END | disposition home or self-care (01) ==
LOC: D.CT 14:47
PROVIDERS: ATTEND Internal Medicine Hematology & Oncology
DX: I82.409 Acute embolism and thrombosis of unspecified deep veins of unspecified lower extremity (principal); D68.59 Other primary thrombophilia

== ENCOUNTER → 2019-07-08 10:27 | Outpatient (CLI) | payer MEDICARE, OTHER ==
[2019-04-09 14:03] VITALS: BMI 27.1
== END | disposition home or self-care (01) ==
LOC: D.MRI 10:27
PROVIDERS: ATTEND Clinical Nurse Specialist Family Health
DX: M25.512 Pain in left shoulder (principal)